=== PATIENT | male | born 1965 | race Caucasian/White ===

== ENCOUNTER 2016-05-05 23:27 | Emergency (ER) | payer OTHER ==
[2016-05-05] MEDS ORDERED: Morphine 4 MG/ML Syringe IVPUSH PRN (23:39)
[2016-05-05] MEDS ORDERED: Sodium Chloride 0.9% 10 ML Syringe FLUSH PRN (23:39)
[2016-05-05] MEDS ORDERED: Famotidine 20 MG/2 ML SDV IVPUSH ONE (23:51)
--- NOTE | 2016-05-05 23:51 | EDM.PDOC ---
ED HISTORY OF PRESENT ILLNESS - General Chief Complaint: Chest Pain Stated Complaint: [facility] Time Seen by Provider: 05/05/16 23:38 Source of Information: Reports: Patient History Limitations: Reports: No limitations - History of Present Illness INITIAL COMMENTS - FREE TEXT/NARRATIVE: The patient presents with chest pain that started tonight after eating some steak and 2 bananas. He said he can feel his heart pounding and he got a little short of breath and diaphoretic. He has a history of HTN. He does not smoke. He was told he is borderline diabetic and lost about 40 pounds and he is exercising. He has had something like this before and not this bad. He called 911 and met [address] [place] [id number] They gave him nitro and some aspirin. That did help the pain some to 05/31. He denies fever, chills or cough. Timing/Duration: Reports: Hour(s): Severity: moderate Location, General: Reports: chest Quality: Reports: Sharp Improves with: Reports: None Worsens with: Reports: None Associated Symptoms (General): Reports: chest pain, diaphoresis, shortness of breath. Denies: cough, fever/chills, nausea/vomiting - Related Data Allergies/ADRs: Allergies Allergy/AdvReac Type Severity Reaction Status Date / Time Penicillins Allergy Cannot Verified 05/05/16 23:40 Remember Home Meds: Home Meds Albuterol Sulfate 2.5 mg IH Q4H PRN #5 ampule 04/14/14 [Rx] Aspirin [Halfprin] 81 mg PO DAILY 04/14/14 [History] Atenolol 100 mg PO DAILY 04/14/14 [History] Fluticasone Propionate [Flonase Allergy Relief] 2 spray INH DAILY 04/14/14 [ History] Fosinopril [Monopril] 20 mg PO DAILY 04/14/14 [History] Hydrochlorothiazide 25 mg PO DAILY 04/14/14 [History] LORazepam [Ativan] 1 mg PO ASDIRECTED PRN 04/14/14 [History] Multivitamin [Multivitamins] 1 tab PO DAILY 04/14/14 [History] Omeprazole [Prilosec] 20 mg PO DAILY 04/14/14 [History] Potassium Gluconate [Potassium] 99 mg PO DAILY 04/14/14 [History] Sucralfate [Carafate] 2 gr PO BEDTIME 04/14/14 [History] Turmeric Root Extract [Turmeric] 500 mg PO DAILY 04/14/14 [History] Ubidecarenone [Co Q-10] 200 mg PO DAILY 04/14/14 [History] Zinc 50 mg PO DAILY 04/14/14 [History] atorvaSTATin [Lipitor] 20 mg PO DAILY 04/14/14 [History] Past Medical History Cardiovascular History: Reports: Hypertension Respiratory History: Reports: Asthma Gastrointestinal History: Reports: GERD Social & Family History - Tobacco Use Smoking Status *Q: Never Smoker - Caffeine Use Caffeine Use: Reports: Coffee - Recreational Drug Use Recreational Drug Use: No - Living Situation & Occupation Occupation: employed ED ROS GENERAL - Review of Systems Review Of Systems: See Below Constitutional: Reports: no symptoms HEENT: Reports: No symptoms Respiratory: Reports: Shortness of Breath Cardiovascular: Reports: Chest pain Endocrine: Reports: no symptoms GI/Abdominal: Reports: No symptoms : Reports: no symptoms Musculoskeletal: Reports: no symptoms Skin: Reports: no symptoms Neurological: Reports: No Symptoms ED EXAM, GENERAL - Physical Exam Exam: See Below Exam Limited By: No limitations General Appearance: alert, no apparent distress Ears: normal external exam Nose: normal inspection Head: atraumatic, normocephalic Neck: normal inspection Respiratory/Chest: no respiratory distress, lungs clear, normal breath sounds Cardiovascular: regular rate, rhythm, no edema, no murmur GI/Abdominal: soft, non tender, no organomegaly, no mass Back Exam: normal inspection Extremities: normal inspection Neurological: alert, oriented, no motor/sensory deficits EKG INTERPRETATION EKG Date: 05/05/16 Time: 23:34 Rhythm: other (sinus tachycardia) Rate (beats/min): 108 [place]: normal P-wave: present QRS: normal ST-T: normal QT: normal Course - Vital Signs Last Recorded V/S: Last Vital Signs Temp 97.7 F 05/05/16 23:35 Pulse 111 H 05/05/16 23:35 Resp 18 05/05/16 23:35 BP 112/75 05/05/16 23:35 Pulse Ox 94 L 05/05/16 23:35 - Orders/Labs/Meds Orders: Active Orders 24 hr Category Date Time Status Cardiac Monitoring [RC] . DIRECTED Care 05/05/16 23:39 Active EKG Documentation Completion [RC] STAT Care 05/05/16 23:39 Active Oxygen Therapy [RC] PRN Care 05/05/16 23:39 Active Peripheral IV Care [RC] . DIRECTED Care 05/05/16 23:39 Active Chest 1V Frontal [CR] Stat Exams 05/05/16 23:39 Taken Morphine Med 05/05/16 23:39 Active 4 mg IVPUSH Q10M PRN Sodium Chloride 0.9% [Saline Flush] Med 05/05/16 23:39 Active 10 ml FLUSH ASDIRECTED PRN Peripheral IV Insertion Adult [OM.PC] Stat Oth 05/05/16 23:39 Ordered Medication Orders Morphine Sulfate (Morphine) 4 mg IVPUSH Q10M PRN PRN Reason: Chest Pain Stop: 05/06/16 23:39 Last Admin: 05/06/16 00:39 Dose: 4 mg Sodium Chloride (Saline Flush) 10 ml FLUSH ASDIRECTED PRN PRN Reason: Keep Vein Open Last Admin: 05/06/16 00:07 Dose: 10 ml Labs: Laboratory Tests 05/05/16 05/05/16 Range/Units 23:50 23:50 WBC 6.45 (4.23-9.07) K/mm3 RBC 5.05 (4.63-6.08) M/mm3 Hgb 15.0 (13.7-17.5) gm/L Hct 43.5 (40.1-51.0) % MCV 86.1 (79.0-92.2) fl MCH 29.7 (25.7-32.2) pg MCHC 34.5 (32.2-35.5) g/dl RDW Std Deviation 40.9 (35.1-43.9) fL Plt Count 178 (163-337) K/mm3 MPV 10.1 (9.4-12.3) fl Neut % (Auto) 66.8 (34.0-67.9) % Lymph % (Auto) 22.3 (21.8-53.1) % [place] % (Auto) 7.6 (5.3-12.2) % Eos % (Auto) 2.6 (0.8-7.0) Baso % (Auto) 0.5 (0.1-1.2) % Neut # 4.31 (1.78-5.38) K/mm3 Lymph # 1.44 (1.32-3.57) K/mm3 [place] # 0.49 (0.30-0.82) K/mm3 Eos # 0.17 (0.04-0.54) K/mm3 Baso # 0.03 (0.01-0.08) K/mm3 Sodium 140 (136-145) mEq/L Potassium 3.4 L (3.5-5.1) mEq/L Chloride 103 (98-107) mEq/L Carbon Dioxide 26 (21-32) mEq/L Anion Gap 14.4 (5-15) BUN 15 (7-18) mg/dL Creatinine 1.0 (0.7-1.3) mg/dL Est Cr Clr Drug Dosing 94.13 mL/min Estimated GFR (MDRD) > 60 (>60) mL/min BUN/Creatinine Ratio 15.0 (14-18) Glucose 208 H (74-106) mg/dL Calcium 8.6 (8.5-10.1) mg/dL Total Bilirubin 0.6 (0.2-1.0) mg/dL AST 25 (15-37) U/L ALT 41 (16-63) U/L Alkaline Phosphatase 54 (46-116) U/L Troponin I 0.131 H* (0.00-0.056) ng/mL Total Protein 6.9 (6.4-8.2) g/dl Albumin 3.9 (3.4-5.0) g/dl Globulin 3.0 gm/dL Albumin/Globulin Ratio 1.3 (1-2) TSH 3rd Generation 3.106 (0.358-3.74) uIU/mL Meds: Medications Generic Name Dose Route Start Last Admin Trade Name Freq PRN Reason Stop Dose Admin Morphine Sulfate 4 mg 05/05/16 23:39 05/06/16 00:39 Morphine IVPUSH 05/06/16 23:39 4 mg Q10M PRN Administration Chest Pain Sodium Chloride 10 ml 05/05/16 23:39 05/06/16 00:07 Saline Flush FLUSH 10 ml ASDIRECTED PRN Administration Keep Vein Open Discontinued Medications Generic Name Dose Route Start Last Admin Trade Name Freq PRN Reason Stop Dose Admin Famotidine 20 mg 05/05/16 23:51 05/06/16 00:06 Pepcid IVPUSH 05/05/16 23:52 20 mg ONETIME ONE Administration - Re-Assessments/Exams Free Text/Narrative Re-Assessment/Exam: 05/05/16 23:53 I ordered an IV saline lock, EKG, CXR, labs, pepcid 20mg IV and morphine 4mg IV. His EKG shows a sinus tachycardia with no acute changes. 05/06/16 00:52 The pain is nearly gone. His CXR shows nothing acute. His CBC looks good. His K was a little low at 3.4. His glucose was elevated at 208. His TSH was negative. His troponin was elevated at 0.131. He is having a nonSTEMI. I will give him a heparin bolus and drip. I called [facility] in [place] and talked with Dr Maldonado and he accepted the patient. He requested lovenox be given instead of the heparin. I ordered 120mg subcutaneous. He also had a little pain left so I ordered nitro 0.4mg SL. I will have him transferred by ambulance. Departure - Departure Time of Disposition: 13:10 Disposition: DC/Tfer to Acute Hospital 02 Reason for Transfer *Q: Primary PCI Indicated Condition: serious Clinical Impression: Acute myocardial infarction Qualifiers: Myocardial infarction ST status: non-ST elevation myocardial infarction Qualified Code(s): I21.4 - Non-ST elevation (NSTEMI) myocardial infarction Forms: ED Department Discharge - My Orders Last 24 Hours: My Active Orders 05/05/16 23:39 Cardiac Monitoring [RC] . DIRECTED EKG Documentation Completion [RC] STAT Oxygen Therapy [RC] PRN Peripheral IV Care [RC] . DIRECTED Chest 1V Frontal [CR] Stat Morphine 4 mg IVPUSH Q10M PRN Sodium Chloride 0.9% [Saline Flush] 10 ml FLUSH ASDIRECTED PRN Peripheral IV Insertion Adult [OM.PC] Stat - Assessment/Plan Last 24 Hours: My Active Orders 05/05/16 23:39 Cardiac Monitoring [RC] . DIRECTED EKG Documentation Completion [RC] STAT Oxygen Therapy [RC] PRN Peripheral IV Care [RC] . DIRECTED Chest 1V Frontal [CR] Stat Morphine 4 mg IVPUSH Q10M PRN Sodium Chloride 0.9% [Saline Flush] 10 ml FLUSH ASDIRECTED PRN Peripheral IV Insertion Adult [OM.PC] Stat
[2016-05-06] MEDS ORDERED: Enoxaparin 120 MG/0.8 ML Syringe SUBCUT ONE (00:58)
[2016-05-06] MEDS ORDERED: Nitroglycerin 0.4 MG Tab.SL SL ONE (00:59)
[2016-05-06 01:06] VITALS: BP 147/89
[2016-05-06] MEDS ORDERED: LORazepam 2 MG/ML MDV IVPUSH ONE (01:13)
--- NOTE | 2016-05-06 08:00 | CR ---
Chest: Portable view of the chest was obtained. Comparison: Previous chest x-ray of 03/10/16. Heart size and mediastinum are within normal limits. Lungs are clear. Bony structures are grossly intact. Impression: 1. Nothing acute is identified on portable chest x-ray. Diagnostic code #1
== END 2016-05-06 01:36 ==
LOC: JD.ED 23:27
DX: I21.4 Non-ST elevation (NSTEMI) myocardial infarction (principal); I10 Essential (primary) hypertension; J45.909 Unspecified asthma, uncomplicated; K21.9 Gastro-esophageal reflux disease without esophagitis; Z79.82 Long term (current) use of aspirin; Z79.899 Other long term (current) drug therapy; Z88.0 Allergy status to penicillin
CPT/HCPCS: 36415; 71010; 80053; 84443; 84484; 85025; 93005; 96372; 96374; 96375; 99285; A9270; J1650; J2060; J2270; J7050; 99284